=== PATIENT | female | born 1960 | race Caucasian/White ===

== ENCOUNTER 2018-03-16 10:31 | Emergency (ER) | payer BC ==
[~2018-03-16] VITALS: Ht 172.7 cm; Wt 65.9 kg
[2018-03-16 11:12] LABS: HEMATOCRIT 41.1 % (36.0-46.0); HEMOGLOBIN 14.1 G/DL (11.9-15.5); MCH 31.9 PG (29.0-34.0); MCHC 34.3 G/DL (30.0-36.0); PLATELET COUNT 247 K/uL (156-360); RBC DIS.WIDTH-CV 11.9 % (11.8-14.6); RBC DIS.WIDTH-SD 41.1 % (39-53); RED BLOOD COUNT 4.42 M/uL (3.80-5.20); WHITE BLOOD COUNT 8.3 K/uL (4.1-10.2)
[2018-03-16 11:16] LABS: APPEARANCE CLEAR ((CLEAR)); BILIRUBIN NEGATIVE; BLOOD LARGE; COLOR YELLOW ((YELLOW)); GLUCOSE (STRIP) NEGATIVE; KETONES NEGATIVE; LEUKOCYTES TRACE; NITRITE NEGATIVE; PROTEIN (STRIP) 30; SPECIFIC GRAVITY 1.012 (1.000-1.030); UROBILINOGEN 0.2 MG/DL (0.2-1.0)
[2018-03-16 11:20] LABS: BACTERIA RARE /HPF; CALCIUM OXALATE CRYSTALS 1+ /HPF; EPITHELIAL CELLS RARE /HPF; MUCUS TRACE /LPF; RED BLOOD CELLS TNTC /HPF (0-5); UCUL ADDED? YES; WHITE BLOOD CELLS 0-5 /HPF (0-5)
[2018-03-16 11:27] LABS: ALBUMIN 4.4 g/dL (3.2-4.8); CHLORIDE 108 mEq/L (99-109); SODIUM 143 mEq/L (136-147)
[2018-03-16 11:30] LABS: GLUCOSE 66 mg/dL (70-99)
[2018-03-16 11:31] LABS: TOTAL BILIRUBIN 0.4 mg/dL (0.0-1.0)
[2018-03-16 11:33] LABS: ALKALINE PHOSPHATASE 124 IU/L (3-129); CREATININE 0.8 mg/dL (0.6-1.3); GFR ESTIMATE (CALCULATED) > 59 mL/min/
[2018-03-16 11:34] LABS: UREA NITROGEN (BUN) 17 mg/dL (9-23)
[2018-03-16 11:35] LABS: AST (GOT) 22 IU/L (2-34)
[2018-03-16 11:36] LABS: ALT (GPT) 26 IU/L (3-49)
[2018-03-16 11:44] LABS: QUANTITATIVE HCG < 4.0 MIU/ML
[2018-03-16] MEDS ORDERED: ZOFRAN4 MG PO (12:27)
[2018-03-16] MEDS ORDERED: NORCO 5/3251 TABLET PO (12:27)
[2018-03-16] MEDS ORDERED: KEFLEX500 MG PO (12:27)
[2018-03-16] MEDS ORDERED: FLOMAX0.4 MG PO (12:27)
[2018-03-16 13:10] VITALS: BP 107/48
== END 2018-03-16 13:12 | disposition home or self-care (01) ==
LOC: EME → EDBD 10:31 → EME 10:31
PROVIDERS: Physician Assistant Medical
DX: N20.0 Calculus of kidney (principal); F17.200 Nicotine dependence, unspecified, uncomplicated; Z87.442 Personal history of urinary calculi
CPT/HCPCS: 74176; 80053; 81003; 82948; 84702; 85027; 87086; J1885